=== PATIENT | male | born 1955 | race Caucasian/White ===

== ENCOUNTER 2020-08-11 15:16 | Emergency (ER) | payer MEDICARE, BC ==
[~2020-08-11] VITALS: Ht 177.8 cm; Wt 100.0 kg
[2020-08-11 15:22] VITALS: BP 139/79
[2020-08-11] MEDS ORDERED: bacitracin 15gm ointment TP ONE (15:35)
[2020-08-11] MEDS ORDERED: ibuprofen tablet 400 MG TABLET PO ONE (15:35)
[2020-08-11] MEDS ORDERED: LIDOcaine 1% W/epiNEPHrine 1:200,000 10ml vial IJ ONE (15:35)
[2020-08-11] MEDS ORDERED: ceFAZolin 1gm IM kit IM ONE (15:35)
[2020-08-11] MEDS ORDERED: LIDOcaine 1% W/epiNEPHrine 1:100,000 20ml vial IJ ONE (15:55)
[2020-08-11] MEDS ORDERED: IBUP-1984 PO (16:14)
[2020-08-11] MEDS ORDERED: CEPH250T PO (16:14)
== END 2020-08-11 17:06 | disposition home or self-care (01) ==
LOC: ER 15:17
DX: S62.635A Displaced fracture of distal phalanx of left ring finger, initial encounter for closed fracture (principal); S61.412A Laceration without foreign body of left hand, initial encounter; X58.XXXA Exposure to other specified factors, initial encounter; Y93.89 Activity, other specified; Y92.89 Other specified places as the place of occurrence of the external cause; Y99.8 Other external cause status
CPT/HCPCS: 64450; 73140; 96372; 99284; J0690